=== PATIENT | male | born 1995 | race Caucasian/White ===

== ENCOUNTER 2017-12-13 08:17 | Emergency (ER) | payer MEDICAID ==
[~2017-12-13] VITALS: Ht 180.3 cm; Wt 79.4 kg
[2017-12-13 08:26] VITALS: BP 163/74; Ht 180.3 cm; Wt 79.4 kg
== END 2017-12-13 09:12 | disposition home or self-care (01) ==
LOC: ED 08:17
DX: L25.9 Unspecified contact dermatitis, unspecified cause (principal)